=== PATIENT | female | born 1995 | race Caucasian/White ===

== ENCOUNTER 2021-10-29 18:09 | Emergency (ER) | payer MEDICAID ==
[2021-10-29] MEDS ORDERED: Sodium Chloride 0.9% 1000 ML 1,000 ML IV STA (18:53)
[2021-10-29] MEDS ORDERED: Zofran 4 MG/2 ML VIAL IV ONE (18:53)
[2021-10-29] MEDS ORDERED: TORAdol 30 mg Injection IV ONE (18:53)
--- NOTE | 2021-10-29 18:56 | ERPHSYRPT ---
- History of Present Illness Time Seen by Provider: 10/29/21 18:26 Historian: patient Exam Limitations: no limitations Physician History: 26 years old female presented in the ER with chief complaint of bilateral flank pain since morning with more on the left side, constant, sharp shooting severe, more with palpation and movements with associated nausea and diarrhea but no vomiting. Denies any urinary complaints. No fever or chills reported. Previous history of kidney stones. Timing/Duration: today, constant, gradual onset, worse Activities at Onset: rest Quality: sharpness Abdominal Pain Onset Location: flank Pain Radiation: groin Severity of Pain-Max: severe Severity of Pain-Current: severe Modifying Factors: Worsens With: movement, palpation Associated Symptoms: diarrhea, nausea Previous symptoms: no prior history Allergies/Adverse Reactions: No Known Drug Allergies Allergy (Unverified 10/29/21 18:45) - Review of Systems Constitutional: No Symptoms Eyes: No Symptoms Ears, Nose, & Throat: No Symptoms Respiratory: No Symptoms Cardiac: No Symptoms Abdominal/Gastrointestinal: Abdominal Pain, Nausea, Diarrhea Genitourinary Symptoms: No Symptoms Musculoskeletal: No Symptoms Skin: No Symptoms Neurological: No Symptoms Psychological: No Symptoms Endocrine: No Symptoms Hematologic/Lymphatic: No Symptoms Immunological/Allergic: No Symptoms - Nursing Vital Signs Nursing Vital Signs: Initial Vital Signs Temperature 98.7 F 10/29/21 18:47 Pulse Rate 89 10/29/21 18:47 Respiratory Rate 18 10/29/21 18:47 Blood Pressure 122/78 10/29/21 18:47 O2 Sat by Pulse Oximetry 98 10/29/21 18:47 Pain Scale Pain Intensity 8 - Physical Exam General Appearance: no apparent distress, alert Eye Exam: PERRL/EOMI, eyes nml inspection Ears, Nose, Throat Exam: normal ENT inspection, TMs normal, pharynx normal, moist mucous membranes Neck Exam: normal inspection, non-tender, supple, full range of motion Respiratory Exam: normal breath sounds, accessory muscle use Cardiovascular Exam: regular rate/rhythm, normal heart sounds Gastrointestinal/Abdomen Exam: soft, normal bowel sounds, tenderness (Left flank), guarding Back Exam: normal inspection, normal range of motion, CVA tenderness, No vertebral tenderness Extremity Exam: normal inspection, normal range of motion Neurologic Exam: alert, oriented x 3, cooperative Skin Exam: normal color SpO2 Interpretation: normal SpO2: 96 O2 Delivery: Room Air Ordered Tests: Active Orders 24 hr Category Date Time Status IV Insertion STAT Care 10/29/21 18:53 Active NPO (ED) STAT Care 10/29/21 18:53 Active ABDOMEN AND PELVIS W/0 CONTRAS [CT] Stat Exams 10/29/21 18:54 Taken CBC W DIFF Stat Lab 10/29/21 19:09 Completed CMP Stat Lab 10/29/21 19:09 Completed CULTURE,URINE Stat Lab 10/29/21 19:04 Received HCG,QUALITATIVE URINE Stat Lab 10/29/21 18:55 Completed LIPASE Stat Lab 10/29/21 19:09 Completed UA W/RFX CULTURE Stat Lab 10/29/21 19:04 Completed Medication Summary Generic Name Dose Route Start Last Admin Trade Name Freq PRN Reason Stop Dose Admin Tamsulosin HCl 0.4 mg 10/29/21 20:02 10/29/21 20:03 Tamsulosin Hcl 0.4 Mg Cap PO 11/28/21 20:01 0.4 mg DAILY GOGO Administration Discontinued Medications Generic Name Dose Route Start Last Admin Trade Name Freq PRN Reason Stop Dose Admin Sodium Chloride 1,000 mls @ 999 mls/hr 10/29/21 18:53 10/29/21 19:08 Sodium Chloride 0.9% 1000 Ml IV 10/29/21 19:53 999 mls/hr .Q1H1M STA Administration Sodium Chloride Confirm 10/29/21 19:05 Sodium Chloride 0.9% 1000 Ml Administered 10/29/21 19:06 Dose 1,000 mls @ ud .ROUTE .STK-MED ONE Ceftriaxone Sodium/Dextrose 2 g in 50 mls @ 100 mls/hr 10/29/21 20:04 10/29/21 20:08 Rocephin 2 Gm-D5w 50ml Bag IV 10/29/21 20:33 100 ml/hr STAT STA 100 mls/hr Administration Ceftriaxone Sodium/Dextrose Confirm 10/29/21 20:07 Rocephin 2 Gm-D5w 50ml Bag Administered 10/29/21 20:08 Dose 2 g in 50 mls @ ud IV .STK-MED ONE Ketorolac Tromethamine 30 mg 10/29/21 18:53 10/29/21 19:08 Ketorolac Tromethamine 30 Mg/Ml Inj IV 10/29/21 18:54 30 mg STAT ONE Administration Ketorolac Tromethamine Confirm 10/29/21 19:05 Ketorolac Tromethamine 30 Mg/Ml Inj Administered 10/29/21 19:06 Dose 30 mg .ROUTE .STK-MED ONE Ondansetron HCl 4 mg 10/29/21 18:53 10/29/21 19:08 Ondansetron Hcl 4 Mg/2 Ml Vial IV 10/29/21 18:54 4 mg STAT ONE Administration Ondansetron HCl Confirm 10/29/21 19:05 Ondansetron Hcl 4 Mg/2 Ml Vial Administered 10/29/21 19:06 Dose 4 mg .ROUTE .STK-MED ONE Tamsulosin HCl Confirm 10/29/21 19:58 Tamsulosin Hcl 0.4 Mg Cap Administered 10/29/21 19:59 Dose 0.4 mg .ROUTE .STK-MED ONE Lab/Rad Data: Laboratory Result Diagrams 10/29/21 19:09 10/29/21 19:09 Laboratory Results 10/29/21 10/29/21 10/29/21 Range/Units 19:09 19:09 19:04 WBC 8.8 (4.0-10.5) x10^3/uL RBC 4.01 L (4.1-5.4) x10^6/uL Hgb 12.5 (12.0-16.0) g/dL Hct 37.8 (35-47) % MCV 94.3 (78-100) fL MCH 31.2 (26-32) pg MCHC 33.1 (32-36) g/dL RDW 13.4 (11.5-14.0) % Plt Count 309 (150-450) x10^3/uL MPV 9.9 (7.5-11.0) fL Gran % 70.4 H (36.0-66.0) % Immature Gran % (Auto) 0.2 (0.00-0.4) % Nucleat RBC Rel Count 0.0 (0.00-0.1) % Eos # (Auto) 0 (0-0.5) x10^3/uL Immature Gran # (Auto) 0.02 (0.00-0.03) x10^3u/L Absolute Lymphs (auto) 1.59 (1.0-4.6) x10^3/uL Absolute Monos (auto) 0.92 (0.0-1.3) x10^3/uL Absolute Nucleated RBC 0.00 (0.00-0.01) x10^3u/L Lymphocytes % 18.1 L (24.0-44.0) % Monocytes % 10.5 (0.0-12.0) % Eosinophils % 0.0 (0.00-5.0) % Basophils % 0.8 (0.0-0.4) % Absolute Granulocytes 6.17 (1.4-6.9) x10^3/uL Basophils # 0.07 (0-0.4) x10^3/uL Sodium 140 (137-145) mmol/L Potassium 3.6 (3.5-5.1) mmol/L Chloride 106 (98-107) mmol/L Carbon Dioxide 28 (22-30) mmol/L Anion Gap 10.5 (5-15) MEQ/L BUN 12 (7-17) mg/dL Creatinine 0.72 (0.52-1.04) mg/dL Estimated GFR > 60.0 ML/MIN Glucose 110 H (74-106) mg/dL Calcium 8.3 L (8.4-10.2) mg/dL Total Bilirubin 0.60 (0.2-1.3) mg/dL AST 18 (14-36) U/L ALT 12 (0-35) U/L Alkaline Phosphatase 71 (38-126) U/L Serum Total Protein 6.7 (6.3-8.2) g/dL Albumin 4.0 (3.5-5.0) g/dL Lipase 116 (23-300) U/L Urinalys Dipstick Clnc MAIN LAB Urine Color YELLOW (YELLOW) Urine Appearance CLOUDY (CLEAR) Urine pH 6.5 (5-6) Ur Specific [place] 1.025 (1.005-1.025) POC Urine Protein Conf 30 (Negative) Urine Ketones TRACE (NEGATIVE) Urine Nitrite NEGATIVE (NEGATIVE) Urine Bilirubin SMALL (NEGATIVE) Urine Urobilinogen 1 (0-1) mg/dL Urine Leukocytes TRACE (NEGATIVE) Urine WBC (Auto) 26-50 (0-5) /HPF Urine RBC (Auto) >101 (0-2) /HPF U Epithel Cells (Auto) RARE (FEW) /HPF Urine Bacteria (Auto) RARE (NEGATIVE) /HPF Urine RBC LARGE (0-5) Nicholas/ul Calcium Oxalate Crystal 26-50 (NEGATIVE) /HPF Urine Mucus (Auto) SLIGHT (NEGATIVE) /HPF Ur Culture Indicated? YES Urine Glucose NEGATIVE (NEGATIVE) mg/dL Urine HCG, Qual (Negative) 10/29/21 Range/Units 18:55 WBC (4.0-10.5) x10^3/uL RBC (4.1-5.4) x10^6/uL Hgb (12.0-16.0) g/dL Hct (35-47) % MCV (78-100) fL MCH (26-32) pg MCHC (32-36) g/dL RDW (11.5-14.0) % Plt Count (150-450) x10^3/uL MPV (7.5-11.0) fL Gran % (36.0-66.0) % Immature Gran % (Auto) (0.00-0.4) % Nucleat RBC Rel Count (0.00-0.1) % Eos # (Auto) (0-0.5) x10^3/uL Immature Gran # (Auto) (0.00-0.03) x10^3u/L Absolute Lymphs (auto) (1.0-4.6) x10^3/uL Absolute Monos (auto) (0.0-1.3) x10^3/uL Absolute Nucleated RBC (0.00-0.01) x10^3u/L Lymphocytes % (24.0-44.0) % Monocytes % (0.0-12.0) % Eosinophils % (0.00-5.0) % Basophils % (0.0-0.4) % Absolute Granulocytes (1.4-6.9) x10^3/uL Basophils # (0-0.4) x10^3/uL Sodium (137-145) mmol/L Potassium (3.5-5.1) mmol/L Chloride (98-107) mmol/L Carbon Dioxide (22-30) mmol/L Anion Gap (5-15) MEQ/L BUN (7-17) mg/dL Creatinine (0.52-1.04) mg/dL Estimated GFR ML/MIN Glucose (74-106) mg/dL Calcium (8.4-10.2) mg/dL Total Bilirubin (0.2-1.3) mg/dL AST (14-36) U/L ALT (0-35) U/L Alkaline Phosphatase (38-126) U/L Serum Total Protein (6.3-8.2) g/dL Albumin (3.5-5.0) g/dL Lipase (23-300) U/L Urinalys Dipstick Clnc Urine Color (YELLOW) Urine Appearance (CLEAR) Urine pH (5-6) Ur Specific [place] (1.005-1.025) POC Urine Protein Conf (Negative) Urine Ketones (NEGATIVE) Urine Nitrite (NEGATIVE) Urine Bilirubin (NEGATIVE) Urine Urobilinogen (0-1) mg/dL Urine Leukocytes (NEGATIVE) Urine WBC (Auto) (0-5) /HPF Urine RBC (Auto) (0-2) /HPF U Epithel Cells (Auto) (FEW) /HPF Urine Bacteria (Auto) (NEGATIVE) /HPF Urine RBC (0-5) Nicholas/ul Calcium Oxalate Crystal (NEGATIVE) /HPF Urine Mucus (Auto) (NEGATIVE) /HPF Ur Culture Indicated? Urine Glucose (NEGATIVE) mg/dL Urine HCG, Qual NEGATIVE (Negative) - Progress Progress: improved Progress Note: 10/29/21 20:45 She is given fluids and symptomatic treatment, on reevaluation patient is pain- free. Work-up showed normal white count, renal functions. Does have UTI and given a dose of Rocephin. CT abdomen pelvis showed 2 mm right distal ureteral stone without hydroureteronephrosis. Noticed ureteral stone visible on the left side. I have given her Flomax. I believe patient would be able to pass the stone at home, do not think she needs to be admitted or transferred. Will give pain medication, Flomax and antibiotics and outpatient urology follow-up recommended. Discussed signs symptoms of worsening needing return to ER which she seems understanding. Counseled pt/family regarding: lab results, diagnosis, need for follow-up, rad results - Departure Departure Disposition: Home Clinical Impression: Ureterolithiasis, Acute UTI Condition: Stable Critical Care Time: No Referrals: DOCTOR,NO FAMILY [Primary Care Provider] - Follow up/PCP as directed PIERRE ECHEVERRIA [COURTESY STAFF] - Follow up/PCP as directed (Early next week for reevaluation and) EMMETT TINSLEY MD [ACTIVE STAFF] - Follow Up with PCP/3 days () Instructions: Kidney Stones (DC), Flank Pain Additional Instructions: Drink plenty of fluids to keep yourself well-hydrated. Take pain medications as needed. Continue with antibiotics. Follow-up with primary care and urology for reevaluation. Return to ER for increasing pain, intractable nausea vomiting/fever chills etc. Prescriptions: Hydrocodone/Acetaminophen [Hydrocodone-Acetamin 5-325 mg] 1 tab PO Q6HPRN PRN 3 Days #12 tablet MDD 4 PRN Reason: Pain Tamsulosin HCl 0.4 mg [Flomax 0.4 MG] 0.4 mg PO DAILY #30 cap Levofloxacin [Levaquin 500 MG Tablet] 500 mg PO DAILY #7 tablet
[2021-10-29] MEDS ORDERED: TORAdol 30 mg Injection ONE (19:05)
[2021-10-29] MEDS ORDERED: Sodium Chloride 0.9% 1000 ML 1,000 ML ONE (19:05)
[2021-10-29] MEDS ORDERED: Zofran 4 MG/2 ML VIAL ONE (19:05)
[2021-10-29 19:13] LABS: Absolute Neutrophil Ct (ANC) 6.17 x10^3/uL (1.4-6.9); Basophil (Absolute #) 0.07 x10^3/uL (0-0.4); Eosinophil (Absolute #) 0 x10^3/uL (0-0.5); Hematocrit 37.8 % (35-47); Hemoglobin 12.5 g/dL (12.0-16.0); Lymphocyte (Absolute #) 1.59 x10^3/uL (1.0-4.6); Lymphocytes % 18.1 % (24.0-44.0); Mean Cell Volume 94.3 fL (78-100); Mean Corpuscular Hemoglobin 31.2 pg (26-32); Mean Corpuscular Hgb Concent. 33.1 g/dL (32-36); Mean Platelet Volume 9.9 fL (7.5-11.0); Monocyte (Absolute #) 0.92 x10^3/uL (0.0-1.3); Monocytes % 10.5 % (0.0-12.0); Neutrophil % 70.4 % (36.0-66.0); Platelet Count 309 x10^3/uL (150-450); Red Blood Count 4.01 x10^6/uL (4.1-5.4); Red Cell Distribution Width 13.4 % (11.5-14.0); White Blood Count 8.8 x10^3/uL (4.0-10.5)
[2021-10-29 19:18] LABS: Appearance CLOUDY (CLEAR); Bilirubin SMALL (NEGATIVE); Dipstick done @ ? MAIN LAB; Glucose NEGATIVE (NEGATIVE); Ketones TRACE (NEGATIVE); Nitrite NEGATIVE (NEGATIVE); Ph 6.5 (5-6); Protein,Urine Dip 30 (Negative); RBC LARGE Ery/ul (0-5); Specific Gravity 1.025 (1.005-1.025); Urobilinogen 1 mg/dL (0-1)
[2021-10-29 19:21] LABS: Bacteria RARE /HPF (NEGATIVE); Calcium Oxalate Crystals 26-50 /HPF (NEGATIVE); Epithelial Cells RARE /HPF (FEW); Mucus SLIGHT /HPF (NEGATIVE); WBC 26-50 /HPF (0-5)
[2021-10-29 19:22] LABS: RBC >101 /HPF (0-2); Urine Cultured Indicated? YES
[2021-10-29 19:57] LABS: ALKALINE PHOSPHATASE 71 U/L (38-126); ANION GAP 10.5 MEQ/L (5-15); BLOOD UREA NITROGEN 12 mg/dL (7-17); CHLORIDE 106 mmol/L (98-107); Calcium 8.3 mg/dL (8.4-10.2); Carbon Dioxide 28 mmol/L (22-30); Creatinine 1 0.72 mg/dL (0.52-1.04); EST GLOMERULAR FILTRATION RATE > 60.0 ML/MIN; Glucose 110 mg/dL (74-106); LIPASE 116 U/L (23-300); Potassium 3.6 mmol/L (3.5-5.1); SGOT/AST 18 U/L (14-36); SGPT/ALT 12 U/L (0-35); SODIUM 140 mmol/L (137-145); Total Protein 6.7 g/dL (6.3-8.2)
[2021-10-29] MEDS ORDERED: Flomax 0.4 MG ONE (19:58)
[2021-10-29] MEDS ORDERED: Flomax 0.4 MG PO SCH (20:02)
[2021-10-29] MEDS ORDERED: ROCEPHIN 2 Gm-D5w 50ML BAG** 2 G/50 ML IVPB IV STA (20:04)
[2021-10-29] MEDS ORDERED: ROCEPHIN 2 Gm-D5w 50ML BAG** 2 G/50 ML IVPB IV ONE (20:07)
[2021-10-29 20:58] VITALS: BP 114/67; PULSE 82; O2SAT 97
--- NOTE | 2021-10-29 22:30 | XRAY ---
Indication: Left flank pain, nausea, and diarrhea. Multiple contiguous axial images obtained through the abdomen and pelvis without contrast. Comparison: None Lung bases clear. Heart not enlarged. Stomach mildly distended with food. Noncontrasted stomach and bowel loops appear nonobstructed with normal appendix. Gallbladder contracted without gallstones. No free fluid/air. Right kidney demonstrates punctate calculus. Right pelvic floor demonstrates 2 mm and 3 mm galb-sm-vhep calcifications or other phleboliths versus distal ureteral calculi. No hydronephrosis or hydroureter. Remaining liver, gallbladder, pancreas, spleen, adrenal glands, kidneys, ureters, bladder, uterus, and aorta are unremarkable for noncontrast exam. Osseous structures intact. No ventral or inguinal hernias. Impression: 1. Right pelvic floor micro-calculi, either phleboliths versus nonobstructing ureteral calculi. Also right renal punctate calculus. 2. Remaining CT abdomen/pelvis without contrast exam is again negative. Comment: Preliminary interpretation made by [facility]. No critical discrepancy.
== END 2021-10-29 20:58 | disposition home or self-care (01) ==
LOC: ED 18:09
DX: N20.1 Calculus of ureter (principal); N39.0 Urinary tract infection, site not specified; R10.9 Unspecified abdominal pain; R11.0 Nausea; R19.7 Diarrhea, unspecified; Z87.442 Personal history of urinary calculi; Z79.891 Long term (current) use of opiate analgesic
CPT/HCPCS: 36000; 36415; 74176; 80053; 81015; 81025; 83690; 85025; 87086; 96365; 96374; 96375; 99284; J0696; J1885; J2405; A9270-GY